=== PATIENT | male | born 1975 | race Caucasian/White ===

== ENCOUNTER → 2017-10-15 | Outpatient (CLI) | payer BC ==
[2017-10-17 09:48] LABS: AFP SERUM TUMOR MARKER 3.2 ng/mL (0.0-8.3)
== END ==
LOC: OD 16:32
PROVIDERS: ATTEND Physician Assistant
DX: N50.9 Disorder of male genital organs, unspecified (principal)
CPT/HCPCS: 36415; 82105; 82677; 83615; 84702; 86336